=== PATIENT | female | born 1965 | race Two or more races ===

== ENCOUNTER 2021-08-06 11:30 | Inpatient (IN) | payer OTHER ==
[~2021-08-06] VITALS: Ht 167.6 cm; Wt 124.7 kg
[2021-08-06] MEDS ORDERED: ETODOLAC600 MG PO (14:58)
[2021-08-06] MEDS ORDERED: SYNTHROID100 MCG PO (14:58)
[2021-08-06] MEDS ORDERED: AMBIEN10 MG PO (14:59)
[2021-08-06] MEDS ORDERED: ATIVAN2 M1 PO (14:59)
[2021-08-06] MEDS ORDERED: PEPCID AC10 MG PO (14:59)
[2021-08-06] MEDS ORDERED: ZANAFLEX4 M1 PO (14:59)
[2021-08-06] MEDS ORDERED: PROTONIX20 MG PO (15:00)
[2021-08-13] MEDS ORDERED: PERCOCET 5-3251 EACH PO (15:34)
[2021-08-13] MEDS ORDERED: MEDROLPACK PO (15:34)
[2021-08-13] MEDS ORDERED: DIAZEPAM5 MG PO (15:34)
[2021-08-13] MEDS ORDERED: COLACE100 MG PO (15:34)
== END 2021-08-14 18:01 | disposition home or self-care (01) | DRG 473 ==
LOC: SURH 08-13 08:47 → O/R 08-13 08:47 → SURH 08-13 11:30
PROVIDERS: ADMIT Orthopaedic Surgery Orthopaedic Surgery of the Spine; ATTEND Orthopaedic Surgery Orthopaedic Surgery of the Spine
PROC: 07DS0ZZ Extraction of Vertebral Bone Marrow, Open Approach (ICD-10-PCS; 2021-08-13)
PROC: 0RG20J0 Fusion of 2 or more Cervical Vertebral Joints with Synthetic Substitute, Anterior Approach, Anterior Column, Open Approach (ICD-10-PCS; principal; 2021-08-13 20:30)
DX: M50.023 Cervical disc disorder at C6-C7 level with myelopathy (principal)